=== PATIENT | female | born 1980 | race Caucasian/White ===

== ENCOUNTER 2020-05-08 17:37 | Emergency (ER) | payer SELFPAY, OTHER ==
[2020-05-08] MEDS ORDERED: ONDANSETRON 4 MG/2 ML VIAL ONE (18:25)
[2020-05-08] MEDS ORDERED: MORPHINE 4 MG/ML SYR ONE (18:25)
[2020-05-08 19:07] LABS: Absolute Lymphocytes (CBC) 1.4 K/uL (0.7-4.9); Basophils % 0.4 % (0-1.3); Hematocrit 47.6 % (36.0-45.0); Lymphocytes % 10.3 % (15.3-44.8); MPV 8.5 fL (7.6-11.3); RBC Red Blood Cell Count 5.66 M/uL (3.86-4.86)
[2020-05-08 19:12] LABS: Protime INR 0.95
--- NOTE | 2020-05-08 19:12 | RAD REPORT ---
EXAM DESCRIPTION: RAD - Chest Single View - 05/08/2020 6:44 pm CLINICAL HISTORY: abdominal pain/n/v Chest pain. COMPARISON: Chest Single View dated 12/25/2017; CHEST PA AND LAT 2 VIEW dated 04/01/2014; CHEST SINGLE VIEW dated 12/02/2013; CHEST PA AND LAT 2 VIEW dated 09/18/2013 FINDINGS: Portable technique limits examination quality. The lungs are grossly clear. The heart is normal in size. No displaced fractures. IMPRESSION: No acute intrathoracic process suspected.
[2020-05-08 19:23] LABS: ALT/SGPT 22 U/L (12-78); AST/SGOT 16 U/L (15-37); Albumin 3.9 g/dL (3.4-5.0); Alkaline Phosphatase 79 U/L (45-117); Amylase 41 U/L (25-115); BUN Blood Urea Nitrogen 7 mg/dL (7-18); Bicarbonate 26 mmol/L (21-32); Bilirubin Direct < 0.1 mg/dL (0-0.2); Bilirubin Total 0.3 mg/dL (0.2-1.0); CKMB Creatine Kinase MB < 1.0 ng/mL (0.3-3.6); Creatine Phosphokinase 39 U/L (26-192); Glucose Level 114 mg/dL (74-106); Lipase 60 U/L (73-393); Potassium 3.8 mmol/L (3.5-5.1); Protein, Total 8.6 g/dL (6.4-8.2); Sodium Level 135 mmol/L (136-145); Troponin (Emerg Dept Use Only) < 0.02 ng/mL (0.0-0.045)
[2020-05-08] MEDS ORDERED: NA CHLORIDE 0.9% 1,000 ML ONE (19:23)
--- NOTE | 2020-05-08 20:05 | RAD REPORT ---
EXAM DESCRIPTION: CTAbdomen Pelvis W Contrast - 05/08/2020 7:59 pm CLINICAL HISTORY: Abdominal pain. n/v;Abd pain COMPARISON: No comparisons TECHNIQUE: Biphasic CT imaging of the abdomen and pelvis was performed with 100 ml non-ionic IV cont rast. All CT scans are performed using dose optimization technique as appropriate and may include automated exposure control or mA/KV adjustment according to patient size. FINDINGS: The lung bases are clear. The liver, spleen, pancreas, adrenal glands and kidneys are within normal limits. Small bilateral kadie al cysts. No bowel obstruction, free air, free fluid or abscess. The appendix is normal. No evidence of signi ficant lymphadenopathy. No suspicious bony findings. IMPRESSION: No acute intra-abdominal or pelvic finding.
--- NOTE | 2020-05-08 23:58 | EDPHYS ---
Physician Documentation [facility] Name: Talia Arias Age: 40 yrs Sex: Female : 1980 Arrival Date: 05/08/2020 Time: 17:40 Bed 16 Private MD: ED Physician Lonnie Roth Historical: - Allergies: 05/08 17:47 NKA; ll1 - PMHx: 17:47 Depression; Back pain; Anxiety; ll1 - PSHx: 17:47 Tubal ligation; ll1 - Immunization history:: Flu vaccine is not up to date. - Social history:: Smoking status: Patient reports the use of cigarette tobacco products, smokes one-half pack cigarettes per day, Patient/guardian denies using alcohol, street drugs. Vital Signs: 17:45 BP 130 / 84; Pulse 94; Resp 17; Temp 97.2; Pulse Ox 100% ; Weight 56.7 kg; Height 5 ft. ll1 5 in. (165.10 cm); Pain 8/10; 19:00 BP 157 / 102; Pulse 68 MON; Resp 17; Pulse Ox 99% on R/A; sv 19:45 BP 138 / 106; Pulse 78; Resp 16; Pulse Ox 100% on R/A; jb4 20:30 BP 149 / 95; Pulse 88; Resp 16; Pulse Ox 100% on R/A; jb4 21:15 BP 211 / 5; Pulse 95; Resp 16; Pulse Ox 98% on R/A; jb4 22:00 BP 144 / 90; Pulse 78; Resp 16; Pulse Ox 100% on R/A; jb4 22:45 BP 132 / 96; Pulse 79; Resp 16; Pulse Ox 99% on R/A; jb4 23:30 BP 135 / 93; Pulse 63; Resp 16; Temp 97.6(O); Pulse Ox 100% on R/A; jb4 17:45 Body Mass Index 20.80 (56.70 kg, 165.10 cm) ll1 19:00 Sinus Rhythm sv MDM: 23:57 Data reviewed: vital signs, nurses notes, lab test result(s), radiologic studies, CT jr8 scan, plain films. Data interpreted: Pulse oximetry: on room air is 99 %. Interpretation: normal. Counseling: I had a detailed discussion with the patient and/or guardian regarding: the historical points, exam findings, and any diagnostic results supporting the discharge/admit diagnosis, lab results, radiology results, the need for outpatient follow up, a family practitioner, to return to the emergency department if symptoms worsen or persist or if there are any questions or concerns that arise at home. Response to treatment: the patient's symptoms have markedly improved after treatment, patient is well hydrated. 23:58 Patient medically screened. jr8 05/08 18:09 Order name: Amylase, Serum; Complete Time: 23:56 [facility] 05/08 18:09 Order name: Basic Metabolic Panel; Complete Time: 23:56 [facility] 05/08 18:09 Order name: Blood Culture Adult (2) [facility] 05/08 18:09 Order name: CBC with Diff; Complete Time: 23:56 [facility] 05/08 18:09 Order name: Ckmb; Complete Time: 23:56 [facility] 05/08 18:09 Order name: CPK; Complete Time: 23:56 [facility] 05/08 18:09 Order name: Lactate; Complete Time: :56 [facility] 05/08 18:09 Order name: LFT's; Complete Time: :56 [facility] 05/08 18:09 Order name: Lipase; Complete Time: 23:56 [facility] 05/08 18:09 Order name: Procalcitonin; Complete Time: 23:56 [facility] 05/08 18:09 Order name: Protime (+inr); Complete Time: 23:56 [facility] 05/08 18:09 Order name: Ptt, Activated; Complete Time: 23:56 [facility] 05/08 18:09 Order name: Troponin (emerg Dept Use Only); Complete Time: 23:56 [facility] 05/08 18:09 Order name: Chest Single View XRAY; Complete Time: 23:56 [facility] 05/08 18:09 Order name: Cardiac monitoring; Complete Time: 18:55 [facility] 05/08 18:09 Order name: EKG - Nurse/Tech; Complete Time: 19:52 [facility] 05/08 18:09 Order name: IV Saline Lock - Large Bore; Complete Time: 18:56 [facility] 05/08 18:09 Order name: Labs collected and sent; Complete Time: 18:56 [facility] 05/08 18:09 Order name: COVID-19 [facility] 05/08 18:10 Order name: CT Abd/Pelvis - IV Contrast Only; Complete Time: 23:56 [facility] 05/08 18:33 Order name: Flu; Complete Time: 23:56 sv 05/08 18:33 Order name: Strep; Complete Time: 23:56 sv 05/08 19:35 Order name: Throat Culture EDMS 05/08 18:09 Order name: O2 Per Protocol; Complete Time: 18:56 kdr 05/08 18:09 Order name: O2 Sat Monitoring; Complete Time: 18:56 kdr Administered Medications: 18:50 Drug: Zofran (Ondansetron) 4 mg Route: IVP; Site: right antecubital; sv 19:20 Follow up: Response: No adverse reaction; Nausea is decreased jb4 18:52 Drug: morphine 4 mg {Note: rass2.} Route: IVP; Site: right antecubital; sv 19:30 Follow up: Response: No adverse reaction; Pain is decreased; RASS: Alert and Calm (0) jb4 18:56 CANCELLED (Physician Discretion): NS 0.9% (30 ml/kg) 30 ml/kg IV at bolus once; Sepsis sv Protocol 20:22 Drug: NS 0.9% 1000 ml Route: IV; Rate: 1000 ml; Site: right antecubital; jb4 21:00 Follow up: Response: No adverse reaction; IV Status: Completed infusion; IV Intake: jb4 1000ml 05/09 00:12 Drug: Zofran (Ondansetron) 4 mg Route: IVP; Site: right antecubital; jb4 00:13 Follow up: Response: Medication administered at discharge. jb4 Disposition: 08:39 Co-signature as Attending Physician, Lonnie Roth MD I agree with the assessment and kdr plan of care. Disposition: 05/08/20 23:58 Discharged to Home. Impression: Abdominal and pelvic pain, Vomiting. - Condition is Stable. - Discharge Instructions: Abdominal Pain, Adult. - Prescriptions for Bentyl 20 mg Oral Tablet - take 1 tablet by ORAL route every 6 hours As needed; 20 tablet. Zofran 4 mg Oral Tablet - take 1 tablet by ORAL route every 12 hours As needed; 20 tablet. - Medication Reconciliation Form, Thank You Letter, Antibiotic Education, Prescription Opioid Use form. - Follow up: Akila Menezes MD; When: 5 - 6 days; Reason: Recheck today's complaints, Continuance of care, Re-evaluation by your physician. - Problem is new. - Symptoms have improved. Signatures: Dispatcher [employer] EDKatarzyna Naranjo, RN RN Lonnie Roth MD MD [facility] Jm Ambrose PA PA jr8 Sukhwinder Canseco RN RN jb4 Bibi Kaiser RN RN ll1 Corrections: (The following items were deleted from the chart) 05/08 18:55 18:09 Accucheck ordered. [facility] 18:56 18:09 NS 0.9% (30 ml/kg) 30 ml/kg IV at bolus once; Sepsis Protocol ordered. [facility] 05/09 00:13 05/08 23:58 05/08/2020 23:58 Discharged to Home. Impression: Abdominal and pelvic pain; jb4 Vomiting. Condition is Stable. Forms are Medication Reconciliation Form, Thank You Letter, Antibiotic Education, Prescription Opioid Use. Follow up: Akila Menezes; When: 5 - 6 days; Reason: Recheck today's complaints, Continuance of care, Re-evaluation by your physician. Problem is new. Symptoms have improved. jr8
--- NOTE | 2020-05-08 23:58 | ER ---
Nurse's Notes [facility] Name: Talia Arias Age: 40 yrs Sex: Female : 1980 Arrival Date: 05/08/2020 Time: 17:40 Bed 16 Private MD: Diagnosis: Abdominal and pelvic pain;Vomiting Presentation: 05/08 17:45 Chief complaint: Patient states: Upper abdominal pain with N/V for 2 days. Fever was ll1 101 at home. Coronavirus screen: Proceed with normal triage. Patient denies a cough. Patient denies shortness of breath or difficulty breathing. Patient reports a measured and/or subjective temperature greater than 100.4F. Patient denies travel on a cruise ship or to a country the [facility] currently lists as an affected area. Patient denies contact with known and/or suspected case of COVID-19. Ebola Screen: Patient denies travel to an Ebola-affected area in the 21 days before illness onset. Initial Sepsis Screen: Does the patient meet any 2 criteria? HR > 90 bpm. No. Patient's initial sepsis screen is negative. Risk Assessment: Do you want to hurt yourself or someone else? Patient reports no desire to harm self or others. Onset of symptoms was May 07, 2020. 17:45 Method Of Arrival: Ambulatory ll1 17:45 Acuity: LETICIA 3 ll1 18:30 Initial Sepsis Screen: Does the patient have a suspected source of infection? Yes: sv Acute abdominal pain. Historical: - Allergies: 17:47 NKA; ll1 - PMHx: 17:47 Depression; Back pain; Anxiety; ll1 - PSHx: 17:47 Tubal ligation; ll1 - Immunization history:: Flu vaccine is not up to date. - Social history:: Smoking status: Patient reports the use of cigarette tobacco products, smokes one-half pack cigarettes per day, Patient/guardian denies using alcohol, street drugs. Screenin:30 Abuse screen: Denies threats or abuse. Denies injuries from another. Nutritional sv screening: No deficits noted. Tuberculosis screening: No symptoms or risk factors identified. Fall Risk None identified. Assessment: 18:30 General: Appears in no apparent distress. uncomfortable, slender, Behavior is calm, sv cooperative, appropriate for age, quiet. Pain: Complains of pain in right upper quadrant and left upper quadrant Pain currently is 8 out of 10 on a pain scale. Pain began 2-3 days ago. Is continuous. Neuro: Level of Consciousness is awake, alert, obeys commands, Oriented to person, place, time, situation, Moves all extremities. Full function Speech is normal. Cardiovascular: Rhythm is sinus rhythm. Respiratory: Airway is patent Respiratory effort is even, unlabored, Respiratory pattern is regular, symmetrical. GI: Abdomen is flat, non-distended, Reports upper abdominal pain, nausea, vomiting. Derm: Skin is normal. Musculoskeletal: Range of motion: intact in all extremities. 18:45 Reassessment: COVID-19 obtained. sv 19:00 Reassessment: Patient appears in no apparent distress at this time. Patient and/or jb4 family updated on plan of care and expected duration. Pain level reassessed. Patient is alert, oriented x 3, equal unlabored respirations, skin warm/dry/pink. 20:00 Reassessment: Patient appears in no apparent distress at this time. Patient and/or jb4 family updated on plan of care and expected duration. Pain level reassessed. Patient is alert, oriented x 3, equal unlabored respirations, skin warm/dry/pink. 20:57 Reassessment: Patient appears in no apparent distress at this time. Patient and/or jb4 family updated on plan of care and expected duration. Pain level reassessed. Patient is alert, oriented x 3, equal unlabored respirations, skin warm/dry/pink. 22:00 Reassessment: Patient appears in no apparent distress at this time. Patient and/or jb4 family updated on plan of care and expected duration. Pain level reassessed. Patient is alert, oriented x 3, equal unlabored respirations, skin warm/dry/pink. 23:00 Reassessment: Patient appears in no apparent distress at this time. Patient and/or jb4 family updated on plan of care and expected duration. Pain level reassessed. Patient is alert, oriented x 3, equal unlabored respirations, skin warm/dry/pink. Pt reports feeling better and more comfortable. 23:56 Reassessment: Patient appears in no apparent distress at this time. Patient and/or jb4 family updated on plan of care and expected duration. Pain level reassessed. Patient is alert, oriented x 3, equal unlabored respirations, skin warm/dry/pink. PT reports feeling more nauseous, provider notified, see MAR for orders. Vital Signs: 17:45 BP 130 / 84; Pulse 94; Resp 17; Temp 97.2; Pulse Ox 100% ; Weight 56.7 kg; Height 5 ft. ll1 5 in. (165.10 cm); Pain 8/10; 19:00 BP 157 / 102; Pulse 68 MON; Resp 17; Pulse Ox 99% on R/A; sv 19:45 BP 138 / 106; Pulse 78; Resp 16; Pulse Ox 100% on R/A; jb4 20:30 BP 149 / 95; Pulse 88; Resp 16; Pulse Ox 100% on R/A; jb4 21:15 BP 211 / 5; Pulse 95; Resp 16; Pulse Ox 98% on R/A; jb4 22:00 BP 144 / 90; Pulse 78; Resp 16; Pulse Ox 100% on R/A; jb4 22:45 BP 132 / 96; Pulse 79; Resp 16; Pulse Ox 99% on R/A; jb4 23:30 BP 135 / 93; Pulse 63; Resp 16; Temp 97.6(O); Pulse Ox 100% on R/A; jb4 17:45 Body Mass Index 20.80 (56.70 kg, 165.10 cm) ll1 19:00 Sinus Rhythm sv ED Course: 17:40 Patient arrived in ED. bp1 17:47 Triage completed. ll1 17:47 Arm band placed on Patient placed in an exam room, on a stretcher. ll1 17:54 Lonnie Roth MD is Attending Physician. kdr 17:59 Katarzyna Demarco RN is Primary Nurse. sv 18:30 Patient has correct armband on for positive identification. Placed in gown. Bed in low sv position. Call light in reach. electrophysiology tech on. Pulse ox on. NIBP on. Door closed. Head of bed elevated. 18:30 First set of blood cultures drawn by me. sv 18:44 Chest Single View XRAY In Process Unspecified. EDMS 18:45 Second set of blood cultures drawn by me, Flu and/or RSV swab sent to lab. Strep swab sv sent to lab. Inserted saline lock: 20 gauge in right antecubital area, using aseptic technique. Blood collected. Flushed right antecubital with 5 ml normal saline. 19:09 Report given to Kofi SHAH. sv 19:12 Awaiting lab results, Awaiting CT Scan. sv 19:21 Primary Nurse role handed off by Katarzyna Demarco, PABLO sv 19:52 Sukhwinder Canseco, PABLO is Primary Nurse. jb4 19:59 CT Abd/Pelvis - IV Contrast Only In Process Unspecified. EDMS 23:56 Jm Ambrose PA is PHCP. jr8 23:57 Akila Menezes MD is Referral Physician. jr8 05/09 00:12 No provider procedures requiring assistance completed. IV discontinued, intact, jb4 bleeding controlled, No redness/swelling at site. Pressure dressing applied. Administered Medications: 05/08 18:50 Drug: Zofran (Ondansetron) 4 mg Route: IVP; Site: right antecubital; sv 19:20 Follow up: Response: No adverse reaction; Nausea is decreased jb4 18:52 Drug: morphine 4 mg {Note: rass2.} Route: IVP; Site: right antecubital; sv 19:30 Follow up: Response: No adverse reaction; Pain is decreased; RASS: Alert and Calm (0) jb4 18:56 CANCELLED (Physician Discretion): NS 0.9% (30 ml/kg) 30 ml/kg IV at bolus once; Sepsis sv Protocol 20:22 Drug: NS 0.9% 1000 ml Route: IV; Rate: 1000 ml; Site: right antecubital; jb4 21:00 Follow up: Response: No adverse reaction; IV Status: Completed infusion; IV Intake: jb4 1000ml 05/09 00:12 Drug: Zofran (Ondansetron) 4 mg Route: IVP; Site: right antecubital; jb4 00:13 Follow up: Response: Medication administered at discharge. jb4 Intake: 05/08 21:00 IV: 1000ml; Total: 1000ml. jb4 Outcome: 23:58 Discharge ordered by . jr8 05/09 00:12 Discharged to home ambulatory, with friend. jb4 Condition: stable Discharge instructions given to patient, Instructed on discharge instructions, follow up and referral plans. medication usage, Demonstrated understanding of instructions, follow-up care, medications. 00:13 Patient left the ED. jb4 Addendum: 05/12/2020 17:51 Addendum: Other attempted to contact pt regarding negative covid swab results. left d m5 message with boyfriend. 18:03 Addendum: Other pt notified of negative swab results. d m5 Signatures: Dispatcher [employer] Samia Duncan, RN RN dm5 Katarzyna Demarco, RN RN sv Lonnie Roth MD MD kdr Roszak, Josh, PA PA jr8 Sukhwinder Canseco RN RN jb4 Flako Stout jp3 Bibi Kaiser RN RN ll1 Cecy Johnson [facility] Corrections: (The following items were deleted from the chart) 05/08 19:25 19:10 Urine : hCG=Negative, Control=Positive. stephanie jp3
[2020-05-09] MEDS ORDERED: ONDANSETRON 4 MG/2 ML VIAL ONE (00:11)
[2020-05-09 00:43] VITALS: BP 135/93; TEMP 97.6; O2SAT 100
== END 2020-05-09 00:13 | disposition home or self-care (01) ==
LOC: ER 17:37
DX: R11.10 Vomiting, unspecified (principal); Z20.828 Contact with and (suspected) exposure to other viral communicable diseases; F17.210 Nicotine dependence, cigarettes, uncomplicated
CPT/HCPCS: 36415; 71045; 74177; 80048; 80076; 82150; 82550; 82553; 83605; 83690; 84145; 84484; 85025; 85610; 85730; 87040; 87070; 87081; 87804; 93005; 96361; 96374; 96375; 99284; J2405; J7030; Q9967; U0001

== ENCOUNTER 2020-08-15 14:53 | Emergency (ER) | payer OTHER, SELFPAY ==
[~2020-08-15 14:53] MED LIST: MORPHINE 4 MG/ML SYR ONE; NA CHLORIDE 0.9% 3,000 ML ONE; ONDANSETRON 4 MG/2 ML VIAL ONE
[2020-08-15] MEDS ORDERED: HYDROMORPHONE HCL 1 MG/ML INJ ONE ×2 (15:22→16:22)
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
[2020-08-15 16:34] VITALS: TEMP 97.8; O2SAT 99
[2020-08-15 16:43] VITALS: BP 142/82
== END 2020-08-15 16:22 | disposition short-term general hospital (02) ==
LOC: ER 14:53
DX: T22.20XA Burn of second degree of shoulder and upper limb, except wrist and hand, unspecified site, initial encounter (principal); X08.8XXA Exposure to other specified smoke, fire and flames, initial encounter; Y93.9 Activity, unspecified; Y92.009 Unspecified place in unspecified non-institutional (private) residence as the place of occurrence of the external cause; F17.210 Nicotine dependence, cigarettes, uncomplicated; F41.8 Other specified anxiety disorders
CPT/HCPCS: 96374; 99285; J1170; J2405; J7030

== ENCOUNTER 2020-11-20 22:56 | Emergency (ER) | payer SELFPAY ==
[2020-11-20] MEDS ORDERED: NA CHLORIDE 0.9% 1,000 ML ONE (23:52)
[2020-11-20] MEDS ORDERED: IBUPROFEN 400 MG TAB ONE (23:52)
[2020-11-20] MEDS ORDERED: ONDANSETRON 4 MG/2 ML VIAL ONE (23:52)
[2020-11-20] MEDS ORDERED: ACETAMINOPHEN 325 MG TABLET ONE (23:52)
[2020-11-21 00:01] LABS: Absolute Lymphocytes (CBC) 2.4 K/uL (0.7-4.9); Basophils % 0.7 % (0-1.3); Lymphocytes % 25.9 % (15.3-44.8); MPV 7.9 fL (7.6-11.3); RBC Red Blood Cell Count 4.87 M/uL (3.86-4.86)
[2020-11-21 00:13] LABS: Potassium 3.6 mmol/L (3.5-5.1)
[2020-11-21 00:41] LABS: Urine Appearance CLOUDY; Urine Bilirubin NEGATIVE (NEG); Urine Blood TRACE (NEG); Urine Color YELLOW; Urine Glucose NEGATIVE (NEG); Urine Protein NEGATIVE (NEG); Urine Specific Gravity 1.015 (1.005-1.030); Urine Urobilinogen 0.2 mg/dL (0.2-1.0)
[2020-11-21 00:46] LABS: Urine Bacteria LOADED /HPF (<20); Urine Microscopic Reflex ORDER UMIC; Urine Mucus 2+ /HPF (NONE SEEN)
[2020-11-21 00:51] LABS: Urine Blood TRACE (NEG); Urine Glucose NEGATIVE (NEG); Urine Protein TRACE (NEG); Urine Specific Gravity >1.030 (1.005-1.030)
--- NOTE | 2020-11-21 02:16 | EDPHYS ---
Physician Documentation [facility] Name: Talia Arias Age: 40 yrs Sex: Female : 1980 Arrival Date: 11/20/2020 Time: 23:00 Bed 17 Private MD: Chin Jenkins E ED Physician Torsten Jessica HPI: 11/20 23:26 This 40 yrs old Female presents to ER via Ambulatory with complaints of pkl Nausea/Vomiting, Headache. 23:26 The patient complains of pain to the top of head and forehead. The patient describes pkl the headache as intermittent. Onset: The symptoms/episode began/occurred 3 day(s) ago. Associated signs and symptoms: Pertinent positives: nausea, vomiting, chills and loss of appetite. 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 - Social history:: Smoking status: Patient reports the use of cigarette tobacco products, smokes one-half pack cigarettes per day. ROS: 23:26 Eyes: Negative for injury, pain, redness, and discharge, ENT: Negative for injury, pkl pain, and discharge, Neck: Negative for injury, pain, and swelling, Cardiovascular: Negative for chest pain, palpitations, and edema, Respiratory: Negative for shortness of breath, cough, wheezing, and pleuritic chest pain. 23:26 Abdomen/GI: Positive for nausea and vomiting. 23:26 Back: Negative for acute changes. 23:26 : Negative for urinary symptoms. 23:26 MS/extremity: Negative for acute changes. 23:26 Skin: Negative for rash. 23:26 Neuro: Positive for headache. Exam: 23:26 Head/Face: Normocephalic, atraumatic. Eyes: Pupils equal round and reactive to light, pkl extra-ocular motions intact. Lids and lashes normal. Conjunctiva and sclera are non-icteric and not injected. Cornea within normal limits. Periorbital areas with no swelling, redness, or edema. ENT: Nares patent. No nasal discharge, no septal abnormalities noted. Tympanic membranes are normal and external auditory canals are clear. Oropharynx with no redness, swelling, or masses, exudates, or evidence of obstruction, uvula midline. Mucous membranes moist. Neck: Trachea midline, no thyromegaly or masses palpated, and no cervical lymphadenopathy. Supple, full range of motion without nuchal rigidity, or vertebral point tenderness. No Meningismus. Chest/axilla: Normal chest wall appearance and motion. Nontender with no deformity. No lesions are appreciated. Cardiovascular: Regular rate and rhythm with a normal S1 and S2. No gallops, murmurs, or rubs. Normal PMI, no JVD. No pulse deficits. Respiratory: Lungs have equal breath sounds bilaterally, clear to auscultation and percussion. No rales, rhonchi or wheezes noted. No increased work of breathing, no retractions or nasal flaring. Abdomen/GI: Soft, non-tender, with normal bowel sounds. No distension or tympany. No guarding or rebound. No evidence of tenderness throughout. Back: No spinal tenderness. No costovertebral tenderness. Full range of motion. Skin: Warm, dry with normal turgor. Normal color with no rashes, no lesions, and no evidence of cellulitis. MS/ Extremity: Pulses equal, no cyanosis. Neurovascular intact. Full, normal range of motion. Neuro: Awake and alert, GCS 15, oriented to person, place, time, and situation. Cranial nerves II-XII grossly intact. Motor strength 5/5 in all extremities. Sensory grossly intact. Cerebellar exam normal. Normal gait. Vital Signs: 23:15 Weight 54.43 kg (R); Height 5 ft. 3 in. (160.02 cm); lp1 23:16 BP 147 / 94; Pulse 90; Resp 17 S; Temp 97.9(O); Pulse Ox 100% on R/A; Weight 54.43 kg jd3 (R); Height 5 ft. 3 in. (160.02 cm) (R); Pain 6/10; 11/21 01:45 BP 132 / 75; Pulse 64; Resp 14; Pulse Ox 97% on R/A; ll2 11/20 23:16 Body Mass Index 21.26 (54.43 kg, 160.02 cm) jd3 MDM: 11/20 23:07 Patient medically screened. pkl 11/21 02:09 Data reviewed: vital signs, nurses notes, lab test result(s). ED course: Patient pkl feeling better. Advised to follow up With PCP in 2 to 3 days. Patient understood instructions. 11/20 23:25 Order name: CBC with Diff; Complete Time: 02:06 pkl 11/20 23:25 Order name: Chem 7; Complete Time: 02:06 pkl 11/20 23:25 Order name: UA pkl 11/21 00:24 Order name: Urine Dipstick--Ancillary (enter results) tt3 11/21 00:24 Order name: Urine --Ancillary (enter results) tt3 11/21 00:25 Order name: Urine Dipstick-Ancillary; Complete Time: 02:06 EDMS 11/21 00:25 Order name: Urine --Ancillary; Complete Time: 02:06 EDMS 11/21 00:46 Order name: Urine Microscopic Only EDMS 11/21 00:48 Order name: Urine Culture EDMS 11/21 00:24 Order name: Urine Test (obtain specimen); Complete Time: 00:24 tt3 11/21 00:24 Order name: Urine Dipstick-Ancillary (obtain specimen); Complete Time: 00:24 tt3 Administered Medications: 11/20 23:32 Drug: Zofran (Ondansetron) 4 mg Route: IVP; Site: right antecubital; 2 11/21 00:35 Follow up: Response: No adverse reaction 2 11/20 23:32 Drug: Tylenol 650 mg Route: PO; 2 11/21 00:35 Follow up: Response: No adverse reaction 2 11/20 23:32 Drug: Motrin 400 mg Route: PO; 2 11/21 00:35 Follow up: Response: No adverse reaction 2 11/20 23:35 Drug: NS 0.9% 1000 ml Route: IV; Rate: 1000 ml; Site: right antecubital; 2 11/21 00:30 Follow up: Response: No adverse reaction; IV Status: Completed infusion; IV Intake: ll2 1000ml 02:10 Drug: Cipro 500 mg Route: PO; 2 02:15 Follow up: Response: Medication administered at discharge. ll2 Disposition: 11/21/20 02:15 Discharged to Home. Impression: Acute headache. Urinary tract infection. - Condition is Stable. - Discharge Instructions: Urinary Tract Infection, Adult, [id number]. - Prescriptions for Cipro 500 mg Oral Tablet - take 1 tablet by ORAL route every 12 hours for 7 days; 14 tablet. - Medication Reconciliation Form, Thank You Letter, Antibiotic Education, Prescription Opioid Use, Work release form form. - Follow up: Chin Jenkins MD; When: 2 - 3 days; Reason: Re-evaluation by your physician. - Problem is new. - Symptoms have improved. 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 [facility] EDME 11/21 02:18 11/20 23:25 CORONAVIRUS+MR.LAB.BRZ ordered. [facility] EDME 11/21 02:24 02:15 11/21/2020 02:15 Discharged to Home. Impression: Acute headache. Urinary tract ll2 infection. Condition is Stable. Discharge Instructions: Urinary Tract Infection, Adult, [id number]-Hlos. Forms are Work release form, Medication Reconciliation Form, Thank You Letter, Antibiotic Education, Prescription Opioid Use. Follow up: Chin Jenkins; When: 2 - 3 days; Reason: Re-evaluation by your physician. Problem is new. Symptoms have improved. pkl
--- NOTE | 2020-11-21 02:16 | ER ---
Nurse's Notes [facility] Name: Talia Arias Age: 40 yrs Sex: Female : 1980 Arrival Date: 11/20/2020 Time: 23:00 Bed 17 Private MD: Chin North E Diagnosis: Acute headache. Urinary tract infection Presentation: 11/20 23:12 Chief complaint: Patient states: N/V, chills, CHÁVEZ, loss of appetite x 3 days; Denies lp1 diarrhea. Coronavirus screen: Client denies travel out of the [place] in the last 14 days. chills, fever, headache. Ebola Screen: No symptoms or risks identified at this time. Risk Assessment: Do you want to hurt yourself or someone else? Patient reports no desire to harm self or others. Onset of symptoms was November 20, 2020. 23:12 Method Of Arrival: Ambulatory lp1 23:12 Acuity: LETICIA 3 lp1 23:17 Initial Sepsis Screen: Does the patient meet any 2 criteria? No. Patient's initial jd3 sepsis screen is negative. Does the patient have a suspected source of infection? No. Patient's initial sepsis screen is negative. Triage Assessment: 23:15 GI: Reports nausea. 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 - Social history:: Smoking status: Patient reports the use of cigarette tobacco products, smokes one-half pack cigarettes per day. Screenin:15 Abuse screen: Denies threats or abuse. Denies injuries from another. Nutritional lp1 screening: No deficits noted. Tuberculosis screening: No symptoms or risk factors identified. Fall Risk None identified. Assessment: 23:05 General: Appears in no apparent distress. Behavior is calm, cooperative, appropriate ll2 for age. Pain: Complains of pain in forehead and top of head. Neuro: Level of Consciousness is awake, obeys commands, Oriented to person, place, time, situation. Cardiovascular: Patient's skin is warm and dry. Respiratory: Airway is patent Respiratory effort is even, unlabored, Respiratory pattern is regular, symmetrical. GI: Abdomen is flat. : No signs and/or symptoms were reported regarding the genitourinary system. EENT: No signs and/or symptoms were reported regarding the EENT system. Derm: Skin is intact, HEALED NORTH NOTED TO LEFT FOREARM. Musculoskeletal: Circulation, motion, and sensation intact. Range of motion: intact in all extremities. 11/21 00:05 Reassessment: Patient and/or family updated on plan of care and expected duration. Pain ll2 level reassessed. Patient is alert, oriented x 3, equal unlabored respirations, skin warm/dry/pink. PT RESTING IN BED. 01:49 Reassessment: Patient and/or family updated on plan of care and expected duration. Pain ll2 level reassessed. Patient is alert, oriented x 3, equal unlabored respirations, skin warm/dry/pink. PT SLEEPING, UPON WAKING STATES HER NAUSEA IS DECREASED. Vital Signs: 11/20 23:15 Weight 54.43 kg (R); Height 5 ft. 3 in. (160.02 cm); lp1 23:16 BP 147 / 94; Pulse 90; Resp 17 S; Temp 97.9(O); Pulse Ox 100% on R/A; Weight 54.43 kg jd3 (R); Height 5 ft. 3 in. (160.02 cm) (R); Pain 6/10; 11/21 01:45 BP 132 / 75; Pulse 64; Resp 14; Pulse Ox 97% on R/A; ll2 11/20 23:16 Body Mass Index 21.26 (54.43 kg, 160.02 cm) jd3 ED Course: 11/20 23:00 Patient arrived in ED. es 23:00 Chin North MD is Private Physician. es 23:07 Torsten Jessica MD is Attending Physician. pkl 23:14 Triage completed. lp1 23:14 Arm band placed on. lp1 23:16 Kavita Montilla, PABLO is Primary Nurse. ll2 23:17 Patient has correct armband on for positive identification. Bed in low position. Call jd3 light in reach. Side rails up X 1. Pulse ox on. NIBP on. 01/02 00:22 Inserted saline lock: 20 gauge in right antecubital area, using aseptic technique. lp1 00:57 Urine --Ancillary (enter results) Sent. ll2 01:51 Urine Dipstick--Ancillary (enter results) Sent. ll2 02:14 Chin North MD is Referral Physician. pkl 02:23 No provider procedures requiring assistance completed. IV discontinued, intact, ll2 bleeding controlled, No redness/swelling at site. Pressure dressing applied. Administered Medications: 11/20 23:32 Drug: Zofran (Ondansetron) 4 mg Route: IVP; Site: right antecubital; ll2 11/21 00:35 Follow up: Response: No adverse reaction ll2 11/20 23:32 Drug: Tylenol 650 mg Route: PO; ll2 11/21 00:35 Follow up: Response: No adverse reaction ll2 11/20 23:32 Drug: Motrin 400 mg Route: PO; ll2 11/21 00:35 Follow up: Response: No adverse reaction ll2 11/20 23:35 Drug: NS 0.9% 1000 ml Route: IV; Rate: 1000 ml; Site: right antecubital; ll2 11/21 00:30 Follow up: Response: No adverse reaction; IV Status: Completed infusion; IV Intake: ll2 1000ml 02:10 Drug: Cipro 500 mg Route: PO; ll2 02:15 Follow up: Response: Medication administered at discharge. ll2 Intake: 00:30 IV: 1000ml; Total: 1000ml. ll2 Outcome: 02:15 Discharge ordered by . pkl 02:23 Discharged to home ambulatory. ll2 02:23 Condition: stable 02:23 Discharge instructions given to patient, Instructed on discharge instructions, follow up and referral plans. medication usage, Demonstrated understanding of instructions, follow-up care, medications, Prescriptions given X 1. 02:24 Patient left the ED. ll2 Addendum: 11/24/2020 08:32 Addendum: Culture Results: Positive urine culture. No further action required. Bacteria s v sensitive to prescribed antibiotic. Signatures: Katarzyna Demarco RN RN sv Lam, Pin, MD MD pkl Aide Victoria Laura, RN RN lp1 Tyrone Hatch RN RN jd3 Kavita Montilla, RN RN ll2
[2020-11-21] MEDS ORDERED: CIPROFLOXACIN HCL 500 MG TAB ONE (02:23)
[2020-11-21 02:39] VITALS: TEMP 97.9
[2020-11-21 02:41] VITALS: BP 132/75; O2SAT 97
[2020-11-21 03:08] LABS: SARS-COV-2 RT PCR NEGATIVE (NEGATIVE)
== END 2020-11-21 02:24 | disposition home or self-care (01) ==
LOC: ER 22:56
DX: N39.0 Urinary tract infection, site not specified (principal); F41.8 Other specified anxiety disorders; F17.210 Nicotine dependence, cigarettes, uncomplicated
CPT/HCPCS: 0240U; 36415; 80048; 81003; 81015; 81025; 85025; 87077; 87086; 87088; 87186; 96361; 96374; 99284; J2405; J7030

== ENCOUNTER 2021-01-25 12:17 | Emergency (ER) | payer SELFPAY ==
--- OUTSIDE RECORDS SUMMARY | 2021-01-25 12:20 | XMS REPORT | Continuity of Care Document ---
:1980 Author Organization [facility] t Address [address] [place] [address] Care Team Providers Name Role Phone Velvet Walters MD Attending Clinician Room, Therapy [facility] Attending Clinician Unavailable Lionel SINGH Attending Clinician Problems This patient has no known problems. Allergies, Adverse Reactions, Alerts This patient has no known allergies or adverse reactions. Medications This patient has no known medications. Procedures This patient has no known procedures. Encounters Start End Encounter Admission Attending Care Care Encounter Source Date/Time Date/Time Type Type Clinicians Facility Department ID 2020-09-02 2020-09-02 [facility] Collins Walters [id number] 12:30:00 23:59:00 Encounter Rj [id number] [facility] [id number] 2020-09-02 2020-09-02 Ancillary Pepper Navarro [id number] 15:44:27 16:44:27 Visit Jenna-Occup Rj [id number] Therapy [facility] [id number] 2020-08-27 2020-08-27 Refill Pepper Flowers [id number] 00:00:00 00:00:00 Lito De La Rosa [id number] [facility] [id number] 2020-08-25 2020-08-25 [facility] Collins Walters [id number] 12:30:00 23:59:00 Encounter Rj [id number] 2020-08-25 2020-08-25 Ancillary RoomPepper.[id number] 15:06:39 15:36:39 Visit Jenna-Occup [place] [id number] [id number] 2020-08-19 2020-08-19 [facility] Collins Walters [id number] 12:25:39 23:59:00 Encounter [place] [id number] 2020-08-19 2020-08-19 Ancillary RoomPepper [id number] 15:15:10 16:15:10 Visit Jenna-Occup Rj [id number] [id number] Results This patient has no known results.
--- NOTE | 2021-01-25 13:36 | ER ---
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 in the last 14 days. At this ll1 time, the client does not indicate any symptoms associated with coronavirus-19. Ebola Screen: Patient denies travel to an Ebola-affected area in the 21 days before illness onset. Initial Sepsis Screen: Does the patient meet any 2 criteria? No. Patient's initial sepsis screen is negative. Does the patient have a suspected source of infection? Yes: Other: F.B. vaginal area. Risk Assessment: Do you want to hurt yourself or someone else? Patient reports no desire to harm self or others. Onset of symptoms was January 25, 2021. 12:25 Method Of Arrival: Ambulatory ll1 12:25 Acuity: LETICIA 4 ll1 12:25 Chief complaint: Patient states: Possible foreign bodies to vaginal area, placed there ll1 today by patient getting arrested. No pain. Historical: - Allergies: 12:25 NKA; ll1 - PMHx: 12:25 Anxiety; Back pain; Depression; ll1 - PSHx: 12:25 Tubal ligation; ll1 - Immunization history:: Flu vaccine is not up to date. - Social history:: Smoking status: Patient reports the use of cigarette tobacco products, smokes one-half pack cigarettes per day. - Family history:: not pertinent. Screenin:25 Abuse screen: Denies threats or abuse. Denies injuries from another. Nutritional ss screening: No deficits noted. Tuberculosis screening: Never had TB. Fall Risk None identified. Assessment: 13:25 General: Appears in no apparent distress. comfortable, Behavior is calm, cooperative, ss Denies fever, feeling ill, fatigue, chills. Pain: Denies pain. Neuro: Level of Consciousness is awake, alert, obeys commands, Oriented to person, place, time, situation. Cardiovascular: Capillary refill < 3 seconds is brisk in bilateral fingers Patient's skin is warm and dry. Respiratory: Airway is patent Respiratory effort is even, unlabored, Respiratory pattern is regular, symmetrical. : Reports glass pipe was self inserted 3 hours ago while in police custody. Pt and police officers report that patient was able to cough out glass pipe. Denies burning with urination, urinary frequency. EENT: Nares are clear Oral mucosa is moist. Derm: Skin is intact, is healthy with good turgor, Skin is dry, Skin is pink, warm \T\ dry. normal. Musculoskeletal: Circulation, motion, and sensation intact. Range of motion: intact in all extremities, Swelling absent. 13:28 Reassessment: Patient remains in police custody. Two officers with patient. Vital Signs: 12:25 BP 149 / 100; Pulse 89; Resp 16; Temp 98.5; Pulse Ox 100% ; Weight 52.16 kg; Height 5 ll1 ft. 4 in. (162.56 cm); Pain 10/10; 12:25 Body Mass Index 19.74 (52.16 kg, 162.56 cm) ll1 ED Course: 12:18 Patient arrived in ED. ds1 12:24 Arm band placed on. ll1 12:25 Triage completed. ll1 12:51 Alejandro Noel MD is Attending Physician. willow 13:14 Janeen Fontanez, PABLO is Primary Nurse. 13:25 Patient has correct armband on for positive identification. Bed in low position. Call ss light in reach. 13:25 Assist provider with pelvic exam: Set up pelvic tray. Performed by Alejandro Noel MD Patient tolerated well. Patient did not have IV access during this emergency room visit. 13:36 Germain Pinedo MD is Referral Physician. [facility] Administered Medications: No medications were administered Outcome: 13:36 Discharge ordered by . willow 13:39 Discharged to Law Enforcement 13:39 Condition: good 13:39 Discharge instructions given to patient, Instructed on discharge instructions, follow up and referral plans. Demonstrated understanding of instructions, follow-up care. 13:41 Patient left the ED. Signatures: Alejandro Noel MD MD cha Sanford, Demi ds1 Janeen Fontanez, PABLO RN Bibi Kaiser RN RN 1
--- NOTE | 2021-01-25 13:36 | EDPHYS ---
Physician Documentation [facility] Name: Talia Arias Age: 40 yrs Sex: Female : 1980 Arrival Date: 01/25/2021 Time: 12:18 Bed 23 Private MD: HAN Physician Alejandro Noel HPI: 01/25 13:28 This 40 yrs old Female presents to ER via Ambulatory with complaints of willow Foreign body In Vagina. 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 Onset: The willow symptoms/episode began/occurred just prior to arrival. Associated signs and symptoms: The patient has no apparent associated signs or symptoms. Historical: - Allergies: 12:25 NKA; ll1 - PMHx: 12:25 Anxiety; Back pain; Depression; ll1 - PSHx: 12:25 Tubal ligation; ll1 - Immunization history:: Flu vaccine is not up to date. - Social history:: Smoking status: Patient reports the use of cigarette tobacco products, smokes one-half pack cigarettes per day. - Family history:: not pertinent. ROS: 13:28 Constitutional: Negative for fever, chills, and weight loss, Eyes: Negative for injury, willow pain, redness, and discharge, ENT: Negative for injury, pain, and discharge, Neck: Negative for injury, pain, and swelling, Cardiovascular: Negative for chest pain, palpitations, and edema, Respiratory: Negative for shortness of breath, cough, wheezing, and pleuritic chest pain, Abdomen/GI: Negative for abdominal pain, nausea, vomiting, diarrhea, and constipation, Back: Negative for injury and pain, MS/Extremity: Negative for injury and deformity, Skin: Negative for injury, rash, and discoloration, Neuro: Negative for headache, weakness, numbness, tingling, and seizure, Psych: Negative for depression, anxiety, suicide ideation, homicidal ideation, and hallucinations, Allergy/Immunology: Negative for hives, rash, and allergies, Endocrine: Negative for neck swelling, polydipsia, polyuria, polyphagia, and marked weight changes, Hematologic/Lymphatic: Negative for swollen nodes, abnormal bleeding, and unusual bruising. 13:28 : Positive for possible foreign body in the vaginal valut. Exam: 13:28 Constitutional: This is a well developed, well nourished patient who is awake, alert, willow and in no acute distress. Head/Face: Normocephalic, atraumatic. Eyes: Pupils equal round and reactive to light, extra-ocular motions intact. Lids and lashes normal. Conjunctiva and sclera are non-icteric and not injected. Cornea within normal limits. Periorbital areas with no swelling, redness, or edema. ENT: Nares patent. No nasal discharge, no septal abnormalities noted. Tympanic membranes are normal and external auditory canals are clear. Oropharynx with no redness, swelling, or masses, exudates, or evidence of obstruction, uvula midline. Mucous membranes moist. Neck: Trachea midline, no thyromegaly or masses palpated, and no cervical lymphadenopathy. Supple, full range of motion without nuchal rigidity, or vertebral point tenderness. No Meningismus. Chest/axilla: Normal chest wall appearance and motion. Nontender with no deformity. No lesions are appreciated. Cardiovascular: Regular rate and rhythm with a normal S1 and S2. No gallops, murmurs, or rubs. Normal PMI, no JVD. No pulse deficits. Respiratory: Lungs have equal breath sounds bilaterally, clear to auscultation and percussion. No rales, rhonchi or wheezes noted. No increased work of breathing, no retractions or nasal flaring. Abdomen/GI: Soft, non-tender, with normal bowel sounds. No distension or tympany. No guarding or rebound. No evidence of tenderness throughout. Back: No spinal tenderness. No costovertebral tenderness. Full range of motion. Pelvic Exam: Normal external genitalia. Speculum exam with closed cervical os, no discharge or bleeding noted. Bimanual exam with normal adnexa, no adnexal or cervical motion tenderness. Normal uterus. Female : Normal external genitalia. Skin: Warm, dry with normal turgor. Normal color with no rashes, no lesions, and no evidence of cellulitis. MS/ Extremity: Pulses equal, no cyanosis. Neurovascular intact. Full, normal range of motion. Neuro: Awake and alert, GCS 15, oriented to person, place, time, and situation. Cranial nerves II-XII grossly intact. Motor strength 5/5 in all extremities. Sensory grossly intact. Cerebellar exam normal. Normal gait. Psych: Awake, alert, with orientation to person, place and time. Behavior, mood, and affect are within normal limits. 13:31 : Pelvic Exam: External exam: is normal, Speculum exam: normal findings, no bleeding willow is noted, no cervicitis, os that is closed, discharge, is not appreciated, the nurse was present for the exam. Vital Signs: 12:25 BP 149 / 100; Pulse 89; Resp 16; Temp 98.5; Pulse Ox 100% ; Weight 52.16 kg; Height 5 ll1 ft. 4 in. (162.56 cm); Pain 10/10; 12:25 Body Mass Index 19.74 (52.16 kg, 162.56 cm) ll1 MDM: 12:51 Patient medically screened. [facility] 13:32 Differential diagnosis: nonspecific abdominal pain. Data reviewed: vital signs, nurses willow notes. Data interpreted: laboratory monitor: rate is 89 beats/min, rhythm is regular, Pulse oximetry: on room air is 100 %. Counseling: I had a detailed discussion with the patient and/or guardian regarding: the historical points, exam findings, and any diagnostic results supporting the discharge/admit diagnosis, the need for outpatient follow up, for definitive care, a family practitioner, an OB/Gyne specialist. 03 13:02 Order name: Pelvic Exam Setup; Complete Time: 13:15 [facility] Administered Medications: No medications were administered Disposition: 01/25/21 13:36 Discharged to Home. 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 - Condition is Stable. - Discharge Instructions: Vaginal Foreign Body, [id number], Vaginal Foreign Body. - Medication Reconciliation Form, Thank You Letter, Antibiotic Education, Prescription Opioid Use form. - Follow up: Private Physician; When: 2 - 3 days; Reason: Recheck today's complaints, Continuance of care, Re-evaluation by your physician. Follow up: Germain Pinedo MD; When: 2 - 3 days; Reason: Recheck today's complaints, Re-evaluation by your physician. - Problem is new. - Symptoms have improved. Signatures: Alejandro Noel MD MD cha Smirch, Shelby, RN RN ss Bibi Kaiser RN RN ll1 Corrections: (The following items were deleted from the chart) 13:36 13:36 01/25/2021 13:36 Discharged to Home. 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 Condition is Stable. Forms are Medication Reconciliation Form, Thank You Letter, Antibiotic Education, Prescription Opioid Use. Follow up: Private Physician; When: 2 - 3 days; Reason: Recheck today's complaints, Continuance of care, Re-evaluation by your physician. Problem is new. Symptoms have improved. willow 13:41 13:36 01/25/2021 13:36 Discharged to Home. 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 Condition is Stable. Forms are Medication Reconciliation Form, Thank You Letter, Antibiotic Education, Prescription Opioid Use. Follow up: Private Physician; When: 2 - 3 days; Reason: Recheck today's complaints, Continuance of care, Re-evaluation by your physician. Follow up: Germain Pinedo; When: 2 - 3 days; Reason: Recheck today's complaints, Re-evaluation by your physician. Problem is new. Symptoms have improved. willow
[2021-01-25 13:48] VITALS: BP 149/100; TEMP 98.5; O2SAT 100
== END 2021-01-25 13:41 | disposition home or self-care (01) ==
LOC: ER 12:17
DX: T19.2XXA Foreign body in vulva and vagina, initial encounter (principal); F17.210 Nicotine dependence, cigarettes, uncomplicated
CPT/HCPCS: 99283

== ENCOUNTER 2024-09-11 11:52 | Emergency (ER) | payer OTHER, SELFPAY ==
--- NOTE | 2024-09-11 12:10 | EDPHYS ---
Physician Documentation [facility] Name: Talia Arias Age: 44 yrs Sex: Female : 1980 Arrival Date: 09/11/2024 Time: 11:52 Bed IW6 Private MD: ED Physician Jeffrey Evans HPI: 09/11 12:06 This 44 yrs old Female presents to ER via Unassigned with complaints of Rash, Eye rn Problem. 12:06 The patient's rash thought to be caused by Contact allergy. The rash is located on the rn face, right eye, right arm and left arm. The rash can be described as erythematous. Onset: The symptoms/episode began/occurred yesterday. Severity of symptoms: At their worst the symptoms were moderate in the emergency department the symptoms are unchanged. The patient has not experienced similar symptoms in the past. Patient reports pulling poison kathryn around home, started with rash on the upper extremities and now to the face and right eye. Reports went to urgent care and sent here. No direct trauma or scratch or anything fell in the eye directly. No blurred vision or change in vision.. 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 - Infectious Disease History:: Denies. - Social history:: Smoking status: Patient reports the use of cigarette tobacco products, smokes one-half pack cigarettes per day. - Family history:: not pertinent. - Hospitalizations: : No recent hospitalization is reported. ROS: 12:06 Constitutional: Negative for fever, chills, and weight loss, Eyes: Positive for rash rn around right eye with redness of eye Skin: Positive for rash to upper extremities Exam: 12:06 Constitutional: This is a well developed, well nourished patient who is awake, alert, rn and in no acute distress. Eyes: Pupils equal round and reactive to light, extra-ocular motions intact. Mild erythema and rash periorbital right eye. Mild conjunctival injection without scleral changes. Skin: Bilateral upper extremities with erythematous raised rash with excoriations. No bulla. No desquamation. Vital Signs: 12:06 BP 149 / 109; Pulse 101; Resp 18; Temp 97.3; Pulse Ox 99% on R/A; Weight 67.13 kg; cm10 Height 5 ft. 2 in. ; Pain 0/10; 12:06 Body Mass Index 27.07 (67.13 kg, 157.48 cm) cm10 12:06 Pain Scale: Adult cm10 MDM: 12:03 Medical Screening Exam initiated rn 12:06 Differential diagnosis: Contact allergy, poison kathryn. Data reviewed: vital signs, nurses rn notes, and as a result, I will discharge patient. Counseling: I had a detailed discussion with the patient and/or guardian regarding the historical points, exam findings, and any diagnostic results supporting the discharge/admit diagnosis, the need for outpatient follow up, to return to the emergency department if symptoms worsen or persist or if there are any questions or concerns that arise at home. Special discussion: I discussed with the patient/guardian in detail that at this point there is no indication for admission to the hospital. It is understood, however, that if the symptoms persist or worsen the patient needs to return immediately for re-evaluation. Administered Medications: 12:28 Drug: MethylPREDNISolone Sodium Succinate IM 125 mg IM once Route: IM; Site: right cm10 gluteus; 12:40 Follow up: Response: No adverse reaction cm10 Disposition Summary: 09/11/24 12:09 Discharge Ordered Notes: Location: Home rn Problem: new rn Symptoms: are unchanged rn Condition: Stable rn Diagnosis - Allergic contact dermatitis due to plants, except food rn Followup: rn - With: Private Physician - When: As needed - Reason: Recheck today's complaints, Re-evaluation by your physician Discharge Instructions: - Discharge Summary Sheet rn - Poison Kathryn Dermatitis rn Forms: - Medication Reconciliation Form rn - Antibiotic rn clinical trials - Prescription Opioid Use rn - Patient Portal Instructions rn - Leadership Thank You Letter rn Prescriptions: - prednisolone acetate 0.12 % Ophthalmic drops, suspension - instill 2 drop OPHTHALMIC route every 4 hours for 48 hours; 1 unit; Refills: 0, rn Product Selection Permitted - Medrol ([place]) 4 mg Oral Tablets, Dose Pack - take 1 tablet ORAL route as directed - follow package instructions; 1 packet; rn Refills: 0, Product Selection Permitted Signatures: Jeffrey Evans MD MD rn Martinez, Clarissa, RN RN 10
--- NOTE | 2024-09-11 12:10 | ER ---
Nurse's Notes [facility] Name: Talia Arias Age: 44 yrs Sex: Female : 1980 Arrival Date: 09/11/2024 Time: 11:52 Bed IW6 Private MD: Diagnosis: Allergic contact dermatitis due to plants, except food Presentation: 09/11 12:06 Chief complaint: Patient states: Got into some poison shawn 2 days ago and has rash to cm10 arms and torso. Pt also has redness and drainage from right eye. Coronavirus screen: Client denies travel out of the [place] in the last 14 days. Ebola Screen: Patient denies travel to an Ebola-affected area in the 21 days before illness onset. No symptoms or risks identified at this time. Initial Sepsis Screen: Does the patient meet any 2 criteria? HR > 90 bpm. Does the patient have a suspected source of infection? No. Patient's initial sepsis screen is negative. Risk Assessment: Do you want to hurt yourself or someone else? Patient reports no desire to harm self or others. Onset of symptoms was September 11, 2024. 12:06 Method Of Arrival: Ambulatory cm10 12:06 Acuity: LETICIA 4 cm10 Triage Assessment: 12:07 General: Appears in no apparent distress. uncomfortable, Behavior is calm, cooperative. cm10 Pain: Denies pain. EENT: Eyes are tearing on right eye. Neuro: No deficits noted. Level of Consciousness is awake, alert, obeys commands, Oriented to person, place, time, situation, Appropriate for age. Respiratory: No deficits noted. Airway is patent Respiratory effort is even, unlabored, Respiratory pattern is regular, symmetrical. Derm: Rash noted that is itchy, red, on left arm and right arm. 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 - Infectious Disease History:: Denies. - Social history:: Smoking status: Patient reports the use of cigarette tobacco products, smokes one-half pack cigarettes per day. - Family history:: not pertinent. - Hospitalizations: : No recent hospitalization is reported. Screenin:29 [facility] ED Fall Risk Assessment (Adult) History of falling in the last 3 months, cm10 including since admission No falls in past 3 months (0 pts) Confusion or Disorientation No (0 pts) Intoxicated or Sedated No (0 pts) Impaired Gait No (0 pts) Mobility Assist Device Used No (0 pt) Altered Elimination No (0 pt) Score/Fall Risk Level 0 - 2 = Low Risk Oriented to surroundings, Maintained a safe environment, Hourly rounding (assess needs \T\ fall precautionary measures) done. Abuse screen: Denies threats or abuse. Denies injuries from another. Nutritional screening: No deficits noted. Tuberculosis screening: No symptoms or risk factors identified. Assessment: 12:30 General: Pending D/C due to shot time. cm10 Vital Signs: 12:06 BP 149 / 109; Pulse 101; Resp 18; Temp 97.3; Pulse Ox 99% on R/A; Weight 67.13 kg; cm10 Height 5 ft. 2 in. ; Pain 0/10; 12:06 Body Mass Index 27.07 (67.13 kg, 157.48 cm) cm10 12:06 Pain Scale: Adult cm10 ED Course: 11:56 Patient arrived in ED. im 12:03 Jeffrey Evans MD is Attending Physician. rn 12:07 Triage completed. cm10 12:08 Jeffrey Evans MD is Referral Physician. rn 12:08 Referral Physician role handed off by Jeffrey Evans MD rn 12:08 Arm band placed on Patient placed in an exam room. cm10 12:29 Patient has correct armband on for positive identification. Provided Education on: cm10 Follow-up instructions. 12:29 No provider procedures requiring assistance completed. Patient did not have IV access cm10 during this emergency room visit. Administered Medications: 12:28 Drug: MethylPREDNISolone Sodium Succinate IM 125 mg IM once Route: IM; Site: right cm10 gluteus; 12:40 Follow up: Response: No adverse reaction cm10 Medication: 12:29 VIS not applicable for this client. cm10 Outcome: 12: Discharge ordered by . rn 12:29 Discharged to home ambulatory, cm10 12:29 Condition: good 12:29 Discharge instructions given to patient, Instructed on discharge instructions, follow up and referral plans. medication usage, Demonstrated understanding of instructions, follow-up care, medications, Prescriptions given X 2, 12:40 Patient left the ED. cm10 Signatures: Jeffrey Evans MD MD rn AlbertNicole rucker Clarissa, RN RN cm10
[2024-09-11] MEDS ORDERED: METHYLPREDNISOLONE 125 MG INJ ONE (12:22)
[2024-09-11 17:47] VITALS: BP 149/109; TEMP 97.3; O2SAT 99
== END 2024-09-11 12:40 | disposition home or self-care (01) ==
LOC: ER 11:52
DX: L23.7 Allergic contact dermatitis due to plants, except food (principal)
CPT/HCPCS: J2919